=== PATIENT | female | born 1995 | race African-American/Black ===

== ENCOUNTER 2016-10-14 11:18 | Emergency (ER) | payer SELFPAY ==
[2016-10-14 11:22] VITALS: BP 114/60; PULSE 80; TEMP 98.8; BMI 33.1
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
== END 2016-10-14 12:10 | disposition home or self-care (01) ==
LOC: JERFT 11:18
DX: R04.0 Epistaxis (principal); R22.0 Localized swelling, mass and lump, head; Y04.2XXA Assault by strike against or bumped into by another person, initial encounter; Y93.89 Activity, other specified; Y92.9 Unspecified place or not applicable
CPT/HCPCS: 99281-25